=== PATIENT | male | born 1995 | race Hispanic/Latino ===

== ENCOUNTER 2023-12-16 10:04 | Emergency (ER) | payer OTHER ==
[~2023-12-16] VITALS: Ht 172.7 cm; Wt 89.8 kg
[2023-12-16] MEDS: LIDOCAINE HCL 1% 20 ML VIAL MISC STA (10:18)
[2023-12-16] MEDS: DIPH,PERTUSS(ACELL),TET VAC/PF 0.5 ML VIAL IM ONE (10:19)
[2023-12-16] MEDS ORDERED: CEPH500B PO (10:30)
[2023-12-16] MEDS: NEOMY SULF/BACITRA/POLYMYXIN B 1 EACH PACKET TP STA (10:34)
[2023-12-16] MEDS: BACITRACIN 1 EACH PACKET TP ONE (10:35)
[2023-12-16 10:40] VITALS: BP 123/75; PULSE 78; RESP 18; O2SAT 98
== END 2023-12-16 10:41 | disposition home or self-care (01) ==
LOC: EDH 10:04
DX: S01.511A Laceration without foreign body of lip, initial encounter (principal); W22.8XXA Striking against or struck by other objects, initial encounter; Y93.89 Activity, other specified; Y92.89 Other specified places as the place of occurrence of the external cause; Y99.8 Other external cause status
CPT/HCPCS: 12013; 90471; 90715